=== PATIENT | female | born 1990 | race Caucasian/White ===

== ENCOUNTER 2019-09-09 11:52 | Emergency (ER) | payer BC ==
--- NOTE | 2019-09-09 12:09 | ER Document Report ---
ED Medical Screen (RME) - General Chief Complaint: Leg Pain Stated Complaint: LEG PAIN Time Seen by Provider: 09/09/19 12:02 - HPI Notes: 09/09/19 12:08 Patient is a 28-year-old female with history of tobacco abuse who presents co mplaining of right posterior proximal calf/posterior knee pain over the past 4 days without precipitating event or injury. Patient states her family doctor was concerned about a possible blood clot so sent her here for evaluation. Denies any prolonged immobilization, distance travel, recent surgery/trauma, personal cancer history, hormone use, or previous DVT/PE. Denies ROWLEY, fever, neck pain, URI, n/v/d, Abd pain, dysuria, back pain, or rash. I have treated and performed a rapid initial assessment of this patient. A comprehensive ED assessment and evaluation of the patient, analysis of test results and completion of medical decision making process will be conducted by additional ED providers. PHYSICAL EXAMINATION: GENERAL: Well-appearing, well-nourished and in no acute distress. A&Ox4. Answers questions appropriately. LUNGS: Breath sounds clear to auscultation bilaterally and equal. No wheezes rales or rhonchi. HEART: Regular rate and rhythm without murmurs, rubs, gallops. Extremities: No cyanosis, clubbing, or edema b/l. No lower extremity asymmetry. NEUROLOGICAL: Normal speech, normal gait. PSYCH: Normal mood, normal affect. - Related Data Allergies/Adverse Reactions: No Known Allergies Allergy (Unverified 09/09/19 12:05) Physical Exam - Vital signs Vitals: Temp Pulse Resp BP Pulse Ox 97.9 F 71 16 122/90 H 100 09/09/19 12:04 09/09/19 12:04 09/09/19 12:04 09/09/19 12:04 09/09/19 12:04 Course - Vital Signs Vital signs: Temp Pulse Resp BP Pulse Ox 97.9 F 71 16 122/90 H 100 09/09/19 12:04 09/09/19 12:04 09/09/19 12:04 09/09/19 12:04 09/09/19 12:04
--- NOTE | 2019-09-09 12:48 | ER Document Report ---
ED Extremity Problem, Lower - General Chief Complaint: Leg Pain Stated Complaint: LEG PAIN Time Seen by Provider: 09/09/19 12:02 Notes: Patient is a 28-year-old female presents emergency department with a chief complaint of right leg pain. Patient reports she has had pain into the right posterior calf and posterior knee for about 4 days. Patient reports she does smoke 1 pack of cigarettes per day. Patient denies injury or fall. Patient d enies recent strenuous activity. Patient attempted to contact her primary care physician but was sent here for an evaluation for possible DVT. Patient does not have a history of DVT or clotting disorders. Patient denies fever. Patient reports at times she notices a large vein that will bulge out to the posterior calf but reports that is not bothering her at this time. She reports the discomfort feels like an intermittent cramping. Denies chest pain or shortness of breath. Denies any other complaints. Denies any prolonged immobilization, distance travel, recent surgery/trauma, personal cancer history, hormone use, or previous DVT/PE. TRAVEL OUTSIDE OF THE [place] IN LAST 30 DAYS: No - Related Data Allergies/Adverse Reactions: No Known Allergies Allergy (Unverified 09/09/19 12:05) Past Medical History - General Information source: Patient - Social History Smoking Status: Current Every Day Smoker Cigarette use (# per day): Yes - 1 ppd Family History: None Patient has suicidal ideation: No Patient has homicidal ideation: No - Past Medical History Cardiac Medical History: Reports: None Pulmonary Medical History: Reports: None EENT Medical History: Reports: None Neurological Medical History: Reports: None Endocrine Medical History: Reports: None Renal/ Medical History: Reports: None Malignancy Medical History: Reports: None GI Medical History: Reports: None Musculoskeletal Medical History: Reports None Skin Medical History: Reports None Psychiatric Medical History: Reports: None Traumatic Medical History: Reports: None Infectious Medical History: Reports: None Surgical Hx: Negative Review of Systems - Review of Systems Constitutional: No symptoms reported EENT: No symptoms reported Cardiovascular: No symptoms reported Respiratory: No symptoms reported Gastrointestinal: No symptoms reported Genitourinary: No symptoms reported Female Genitourinary: No symptoms reported Musculoskeletal: See HPI Skin: No symptoms reported Hematologic/Lymphatic: No symptoms reported Neurological/Psychological: No symptoms reported Physical Exam - Vital signs Vitals: Temp Pulse Resp BP Pulse Ox 97.9 F 71 16 122/90 H 100 09/09/19 12:04 09/09/19 12:04 09/09/19 12:04 09/09/19 12:04 09/09/19 12:04 Interpretation: Normal - Notes Notes: GENERAL: Well-appearing, well-nourished and in no acute distress. HEAD: Atraumatic, normocephalic. EYES: Pupils equal round and reactive to light, extraocular movements intact, sclera anicteric, conjunctiva are normal. ENT: TM's normal, normal range of motion, supple without lymphadenopathy or JVD. LUNGS: Breath sounds clear to auscultation bilaterally and equal. No wheezes rales or rhonchi. HEART: Regular rate and rhythm without murmurs, rubs or gallops. ABDOMEN: Soft, nontender, normoactive bowel sounds. No guarding, no rebound. No masses appreciated. BACK: No cervical, thoracic, lumbar midline tenderness. No saddle anesthesia, normal distal neurovascular exam. GENITOURINARY: Deferred. EXTREMITIES: Normal range of motion, no pitting or edema. No clubbing or cyanosis. I do not appreciate any edema, erythema reproducible pain noted to the right calf and right posterior knee. Patient has a +2 palpable popliteal, dorsalis pedis and posterior tibial pulse with palpation. When attempting to perform Homans sign with dorsiflexion to the right foot, patient complains of very mild right calf pain. NEUROLOGICAL: Cranial nerves II through XII grossly intact. Normal speech, normal gait. PSYCH: Normal mood, normal affect. SKIN: Warm, Dry, normal turgor, no rashes or lesions noted. Course - Re-evaluation Re-evalutation: 09/09/19 12:57 Patient sitting upright on stretcher no acute distress. Doppler tech has been paged. 09/09/19 14:08 Per doppler tech, she is negative for DVT. 09/09/19 14:23 I did discuss the results of the Doppler with the patient, to include negative Doppler and negative DVT. Patient verbalized understanding. I did inform the patient this could be related to muscle, tendon or ligament although she denies a specific injury. Patient use Tylenol or ibuprofen. - Vital Signs Vital signs: Temp Pulse Resp BP Pulse Ox 97.9 F 71 16 122/90 H 100 09/09/19 12:04 09/09/19 12:04 09/09/19 12:04 09/09/19 12:04 09/09/19 12:04 Discharge - Discharge Clinical Impression: Right leg pain, Pain in right lower leg Condition: Stable Disposition: HOME, SELF-CARE Additional Instructions: *Today was in the emergency department for right lower leg pain. We did obtain a Doppler which was negative for DVT, DVT is a blood clot. It is unsure what is causing your leg pain as you have reported there was no injury, fall or recent strenuous activity. At this time there is no sign of blood clot, infection or serious disease. You can use Tylenol and ibuprofen as needed for pain. If your pain worsens or changes or you develop any leg weakness, numbness, discoloration, swelling please return the emergency department. Please follow- up with your primary care physician. Leg Pain, Nonspecific We did not find an obvious cause for your leg pain. There's no sign of blood clot, infection, or other serious disease. Possible causes of vague leg pain include muscle or joint inflammation, disc disease in the lower back, pressure on the nerves in the back, or reduced blood flow through the arteries of the leg. Rest the leg. Pain can be eased with an antiinflammatory pain medicine such as ibuprofen. If the pain involves a small area, a heating pad might help. Call the doctor or return if the leg becomes swollen, weak, discolored, or increasingly painful, or if you develop any other significant change in your health.
[2019-09-09 14:38] VITALS: BP 99/64
--- NOTE | 2019-09-10 16:18 | XCELERA REPORT ---
[address] [place] [facility] [place] [id number] Lower Extremity Venous Evaluation Procedure: Color flow and duplex imaging of the veins of the right lower extremity as well as the left Common Femoral vein. Right Sided Venous Evaluation Normal vessel filling wall to wall, compression and augmentation as well as Colour flow down to the infrageniculate veins. Left Sided Venous Evaluation The left common femoral vein is fully compressible. Spontaneous and phasic flow is present in the left common femoral vein. Interpretation Summary No duplex evidence of DVT or obstruction in the right lower extremity nor in the left Common Femoral vein. Name: TING GUAN Rico Age: 28 yrs Gender: Female : 1990 Patient Status: Emergency Patient Location: ER Study Date: 09/09/2019 01:37 PM Reason For Study: Rt posterior leg pain Ordering Physician: ANGELA CERRATO Performed By: Effie Huerta : ANGELA CERRATO > Titus Pham
== END 2019-09-09 14:37 | disposition home or self-care (01) ==
LOC: ER 11:52
DX: M79.661 Pain in right lower leg (principal); F17.210 Nicotine dependence, cigarettes, uncomplicated
CPT/HCPCS: 93971; 99283